=== PATIENT | female | born 1970 | race African-American/Black ===

== ENCOUNTER → 2017-09-22 | Outpatient (CLI) | payer MEDICARE ==
[2016-04-24 20:13] VITALS: BP 159/66
[~2017-09-22] MED LIST: PHEN100T82 PO
--- NOTE | 2017-09-22 10:09 | KCIC ---
DATE: 09/22/2017 EXAM: MAMMO ERNST SCREENING BILATERAL HISTORY: Routine screening COMPARISON: Previous study from 2013 and 2009 This study was interpreted with the benefit of Computerized Aided Detection (CAD). FINDINGS: Breast Density: DENSE The breast Parenchyma is dense, which could reduce the sensitivity of mammography. Breast parenchyma level density D.. The nipples and skin are within normal limits. No suspicious calcifications, spiculated masses or areas of architectural distortion IMPRESSION: No mammographic evidence of malignancy. No significant change when compared to study from 2013. BI-RADS CATEGORY: 1 NEGATIVE RECOMMENDED FOLLOW-UP: 12M 12 MONTH FOLLOW-UP PQRS compliance statement: Patient information was entered into a reminder system with a target due date 09/22/2018 for the next mammogram. Mammography is a sensitive method for finding small breast cancers, but it does not detect them all and is not a substitute for careful clinical examination. A negative mammogram does not negate a clinically suspicious finding and should not result in delay in biopsying a clinically suspicious abnormality. "Our facility is accredited by the [employer] Mammography [employer]."
== END | disposition home or self-care (01) ==
LOC: KCIC MAMMO 08:27
PROVIDERS: ATTEND Physician Assistant
DX: Z12.31 Encounter for screening mammogram for malignant neoplasm of breast (principal)
CPT/HCPCS: 77063; G0202; 77067

== ENCOUNTER → 2019-08-16 | Outpatient (CLI) | payer OTHER, MEDICARE ==
[2016-04-24 20:13] VITALS: BP 159/66
--- NOTE | 2019-08-16 16:37 | KCIC ---
Bilateral digital screening mammograms with 3-D tomosynthesis: Reason for examination: Routine screening. Comparison is made to previous studies dated 09/22/2017 and 08/09/2014. Bilateral mammograms in CC and oblique projections were obtained with 2-D imaging and 3-D tomosynthesis imaging on a Siemens Inspiration unit and reviewed on the workstation. Interpretation was made with the benefit of CAD. The skin and nipples show no abnormalities. No abnormal axillary lymph nodes are seen. The breast parenchyma is extremely dense. (Breast density: Category D.) There are no dominant masses, suspicious calcifications or architectural distortion. Impression: No evidence of malignancy. Recommend routine screening. Your patient's mammogram demonstrates that she has dense breast tissue (breast density category C or D), which could hide abnormalities, and if she has other risk factors for breast cancer that have been identified, she might benefit from supplemental screening tests that may be suggested by you as her ordering physician. Dense breast tissue, in and of itself, is a relatively common condition. Therefore, this information is not provided to cause undue concern, but rather to raise your awareness and to promote discussion with your patient regarding the presence of other risk factors, in addition to dense breast tissue. Your patient's mammography results will be sent to her. BI-RAD Category 1: Negative. "Our facility is accredited by the [employer] Mammography [employer]." This patient's information has been entered into a reminder system for the patient to be notified with the results of her examination and a target date for the next mammogram. Electronically signed by: Rajani Tobias MD (08/16/2019 4:34 PM) [id number]
== END | disposition home or self-care (01) ==
LOC: KCIC MAMMO 14:03
PROVIDERS: ATTEND Internal Medicine
DX: Z12.31 Encounter for screening mammogram for malignant neoplasm of breast (principal)
CPT/HCPCS: 77063; 77067

== ENCOUNTER 2022-03-20 10:41 | Emergency (ER) | payer MEDICARE, OTHER ==
[~2022-03-20] VITALS: Ht 165.1 cm; Wt 62.5 kg
[2022-03-20 11:45] LABS: BASO # 0.1 x10^3/uL (0.0-0.2); BASO % 1 % (0-3); EOS # 0.1 x10^3/uL (0.0-0.7); EOS % 1 % (0-3); HEMATOCRIT 34.6 % (36.0-47.0); HEMOGLOBIN 11.6 g/dL (12.0-15.5); LYMPH # 1.8 x10^3/uL (1.0-4.8); LYMPH % 27 % (24-48); MEAN CORPUSCULAR HEMOGLOBIN 29 pg (25-35); MEAN CORPUSCULAR HGB CONC 34 g/dL (31-37); MEAN CORPUSCULAR VOLUME 86 fL (79-100); MONO # 0.5 x10^3/uL (0.0-1.1); MONO % 8 % (0-9); NEUT # 4.3 x10^3/uL (1.8-7.7); NEUT % 63 % (31-73); PLATELET COUNT 251 x10^3/uL (140-400); RED BLOOD COUNT 4.03 x10^6/uL (3.50-5.40); RED CELL DISTRIBUTION WIDTH 12.7 % (11.5-14.5); WHITE BLOOD COUNT 6.8 x10^3/uL (4.0-11.0)
[2022-03-20] MEDS ORDERED: IV NORMAL SALINE 1000ML BAG 1,000 ML IV ONE (11:45)
[2022-03-20 11:55] LABS: CALCIUM 8.9 mg/dL (8.5-10.1); CREATININE 0.8 mg/dL (0.6-1.0); GFR 91.9; POTASSIUM 3.7 mmol/L (3.5-5.1)
[2022-03-20 12:01] LABS: ALBUMIN 3.6 g/dL (3.4-5.0); ALBUMIN/GLOBULIN RATIO 1.1 (1.0-1.7); MAGNESIUM 1.8 mg/dL (1.8-2.4); TOTAL BILIRUBIN 0.8 mg/dL (0.2-1.0); TOTAL PROTEIN 6.9 g/dL (6.4-8.2)
--- NOTE | 2022-03-20 12:45 | RAD ---
AP chest. HISTORY: Weakness AP view was taken of the chest. Lungs are free of infiltrates. Heart is normal in size. There is no e ffusion. There is mild scoliosis. IMPRESSION: 1. No acute infiltrates. Electronically signed by: Joo Nelson MD (03/20/2022 12:43 PM) [id number]
--- NOTE | 2022-03-20 12:48 | RAD ---
EXAM: Head CT without contrast. HISTORY: Headache. TECHNIQUE: Computed tomographic images of the head were obtained without contrast. *One or more of the following individualized dose reduction techniques were utilized for this examina tion: 1. Automated exposure control. 2. Adjustment of the mA and/or kV according to patient size. 3. Use of iterative reconstruction technique. COMPARISON: None. FINDINGS: There is no acute or subacute extra-axial or intraparenchymal hemorrhage. There is no mass effect or midline shift. There is no hydrocephalus. The kimball-white matter differentiation pattern is intact. There is opacification of an underpneumatized right frontal sinus. The mastoid air cells are clear. T here is no suspicious calvarial lesion. IMPRESSION: No acute intracranial findings. Electronically signed by: Caitlyn Szymanski MD (03/20/2022 12:46 PM) [id number]
--- NOTE | 2022-03-20 13:09 | PHYS DOC ---
Past Medical History Past Medical History: Bipolar, Depression, High Cholesterol, Schizophrenia, Other Additional Past Medical Histor: allergies Past Surgical History: No Surgical History Smoking Status: Never Smoker Alcohol Use: Sober Drug Use: None General Adult EDM: Chief Complaint: MULTIPLE COMPLAINTS HPI: HPI: 51-year-old female presents with report of pain behind her left eye which has been intermittent for the last 2 to 3 months. Patient does report some right-sided weakness and numbness that is been ongoing since January 2021. Patient reports the right-sided weakness and numbness occurred after an accident. Denies any fever or chills. Denies recent trauma. Patient reports she had gone to urgent care yesterday who instructed her to present to the ER for further evaluation and treatment. Denies use of blood thinners. Denies nausea or vomiting. Review of Systems: Review of Systems: Constitutional: Denies fever or chills Eyes: Denies redness or vision changes; reports pain behind left eye HENT: Denies nasal congestion or epistaxis Respiratory: Denies cough or shortness of breath Cardiovascular: Denies chest pain or palpitations GI: Denies abdominal pain, nausea, or vomiting : Denies dysuria or hematuria Musculoskeletal: Denies back pain or extremity pain Integument: Denies rash or skin lesions Neurologic: Reports headache and chronic right-sided weakness or sensory changes since January 2021 Complete systems were reviewed and found to be within normal limits, except as documented in this note. Heart Score: C/O Chest Pain: N/A Current Medications: Current Medications Medications (Trade) Dose Ordered Sig/Mike Start Time Stop Time Status Last Admin Dose Admin Sodium Chloride 1,000 ml @ 1,000 mls/hr 1X ONCE 03/20/22 11:45 03/20/22 12:44 DC 03/20/22 11:49 1,000 MLS/HR Allergies: Allergies: Allergies Coded Allergies Type Severity Reaction Last Updated Verified aspirin Allergy Intermediate 03/20/22 Yes Physical Exam: PE: Constitutional: Well developed, well nourished, no acute distress, non-toxic appearance HENT: Normocephalic, atraumatic Eyes: PERRL, EOMI, conjunctiva normal, no discharge, no nystagmus Neck: Normal range of motion, no tenderness, supple Lungs & Thorax: No respiratory distress, equal chest rise and fall Abdomen: Soft, no tenderness Skin: Warm, dry, no erythema, no rash Extremities: No tenderness, ROM intact, no edema Neurologic: Alert and oriented X 3, reports decreased sensation to right arm compared to left as well as right leg compared to left. Strength 4 out of 5 to right lower extremity with straight leg raise, other extremities 5/5 strength. Psychologic: Affect normal, judgment normal Current Patient Data: Labs: Laboratory Tests Test 03/20/22 11:23 03/20/22 11:53 White Blood Count 6.8 x10^3/uL (4.0-11.0) Red Blood Count 4.03 x10^6/uL (3.50-5.40) Hemoglobin 11.6 g/dL (12.0-15.5) L Hematocrit 34.6 % (36.0-47.0) L Mean Corpuscular Volume 86 fL (79-100) Mean Corpuscular Hemoglobin 29 pg (25-35) Mean Corpuscular Hemoglobin Concent 34 g/dL (31-37) Red Cell Distribution Width 12.7 % (11.5-14.5) Platelet Count 251 x10^3/uL (140-400) Neutrophils (%) (Auto) 63 % (31-73) Lymphocytes (%) (Auto) 27 % (24-48) Monocytes (%) (Auto) 8 % (0-9) Eosinophils (%) (Auto) 1 % (0-3) Basophils (%) (Auto) 1 % (0-3) Neutrophils # (Auto) 4.3 x10^3/uL (1.8-7.7) Lymphocytes # (Auto) 1.8 x10^3/uL (1.0-4.8) Monocytes # (Auto) 0.5 x10^3/uL (0.0-1.1) Eosinophils # (Auto) 0.1 x10^3/uL (0.0-0.7) Basophils # (Auto) 0.1 x10^3/uL (0.0-0.2) Sodium Level 142 mmol/L (136-145) Potassium Level 3.7 mmol/L (3.5-5.1) Chloride Level 106 mmol/L (98-107) Carbon Dioxide Level 28 mmol/L (21-32) Anion Gap 8 (6-14) Blood Urea Nitrogen 5 mg/dL (7-20) L Creatinine 0.8 mg/dL (0.6-1.0) Estimated GFR (Cockcroft-Gault) 91.9 BUN/Creatinine Ratio 6 (6-20) Glucose Level 70 mg/dL (70-99) Calcium Level 8.9 mg/dL (8.5-10.1) Magnesium Level 1.8 mg/dL (1.8-2.4) Total Bilirubin 0.8 mg/dL (0.2-1.0) Aspartate Amino Transferase (AST) 17 U/L (15-37) Alanine Aminotransferase (ALT) 17 U/L (14-59) Alkaline Phosphatase 83 U/L (46-116) Creatine Kinase 167 U/L (26-192) Creatine Kinase MB (Mass) 0.5 ng/mL (0.0-3.6) Creatine Kinase MB Relative Index 0.3 % (0-4) Troponin I High Sensitivity 5 ng/L (4-50) Total Protein 6.9 g/dL (6.4-8.2) Albumin 3.6 g/dL (3.4-5.0) Albumin/Globulin Ratio 1.1 (1.0-1.7) POC Urine HCG, Qualitative Hcg negative (Negative) Laboratory Tests 03/20/22 11:23 Laboratory Tests 03/20/22 11:23 Vital Signs: Vital Signs Date Time Temp Pulse Resp B/P (MAP) Pulse Ox O2 Delivery O2 Flow Rate FiO2 03/20/22 12:50 56 19 129/60 (83) 99 03/20/22 11:28 97.6 Room Air 97.6 EKG: EKG: @1205 Sinus bradycardia at 53bpm, NO ST elevation, QRS 60ms, QT/QTc 446/421ms Radiology/Procedures: Radiology/Procedures: PROCEDURE: CT HEAD WO CONTRAST EXAM: Head CT without contrast. HISTORY: Headache. TECHNIQUE: Computed tomographic images of the head were obtained without contrast. *One or more of the following individualized dose reduction techniques were utilized for this examination: 1. Automated exposure control. 2. Adjustment of the mA and/or kV according to patient size. 3. Use of iterative reconstruction technique. COMPARISON: None. FINDINGS: There is no acute or subacute extra-axial or intraparenchymal hemorrhage. There is no mass effect or midline shift. There is no hydrocephalus. The kimball-white matter differentiation pattern is intact. There is opacification of an underpneumatized right frontal sinus. The mastoid air cells are clear. There is no suspicious calvarial lesion. IMPRESSION: No acute intracranial findings. Electronically signed by: Caitlyn Szymanski MD (03/20/2022 12:46 PM) [id number] PROCEDURE: PORTABLE CHEST 1V AP chest. HISTORY: Weakness AP view was taken of the chest. Lungs are free of infiltrates. Heart is normal in size. There is no effusion. There is mild scoliosis. IMPRESSION: 1. No acute infiltrates. Electronically signed by: Joo Nelson MD (03/20/2022 12:43 PM) [id number] Course & Med Decision Making: Course & Med Decision Making Pertinent Labs and Imaging studies reviewed. (See chart for details) Patient presents with multiple complaints including pain behind left eye which has been ongoing for the past 2 to 3 months as well as right sided weakness and numbness that has been ongoing since January 2021. Denies any recent trauma. NIHSS 2 which is baseline per patient since January 2021. CT head without acute finding. Labs obtained and posted to chart. EKG stable. Symptomatic treatment provided with interval improvement of symptoms. Patient stable for discharge with outpatient follow-up with PCP/neurologist. Neurology referral provided. Of note patient requesting a work note. Discussed findings and plan with patient, who acknowledges understanding and agreement. Dixon Disclaimer: Dixon Disclaimer: This electronic medical record was generated, in whole or in part, using a voice recognition dictation system. Departure Departure Impression: Primary Impression: Headache Qualified Codes: R51.9 - Headache, unspecified Disposition: HOME / SELF CARE / HOMELESS Condition: STABLE Referrals: MOOKIE COLLIER MD (PCP) MEGHA HIGHTOWER MD Patient Instructions: General Headache Without Cause, [id number], Headache, FAQs Additional Instructions: Increase fluid hydration. Take [id number] Tylenol or ibuprofen as needed for pain or discomfort. You were also noted to have right-sided weakness and decreased sensation that has been ongoing for over 1 year. It would be gordon for you to follow with a neurologist for further evaluation. NIHSS Stroke Scale NIH Stroke Scale: NIH Stroke Scale Response (Comments) Value Level of Consciousness: 0 Alert/Responsive 0 LOC Questions: 0 Answers both correctly 0 LOC Commands: 0 Performs both tasks 0 Best Gaze: 0 Normal 0 Visual: 0 No visual loss 0 Facial Palsy: 0 Normal, symmetrical 0 Motor - Left Arm 0 No drift 0 Motor - Right Arm 0 No drift 0 Motor - Left Leg 0 No drift 0 Motor: Right Leg 1 Drift but can hold (Reports stable sin ce January 2021) 1 Limb Ataxia: 0 Absent 0 Sensory: 1 Mid to moderate loss (Reports stable s carlos January 2021) 1 Best Language: 0 Normal 0 Dysathria: 0 Normal 0 Extinction and Inattention: 0 Normal 0 Total 2 ASBA,YOVANI Scherer DO March 20, 2022 13:09
[2022-03-20 13:36] VITALS: BP 122/64
--- NOTE | 2022-03-24 07:59 | EKG ---
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
== END 2022-03-20 13:37 | disposition home or self-care (01) ==
LOC: ER 10:41
DX: R51.9 Headache, unspecified (principal); R53.1 Weakness; R20.0 Anesthesia of skin; F31.9 Bipolar disorder, unspecified; E78.00 Pure hypercholesterolemia, unspecified; F20.9 Schizophrenia, unspecified; Z88.6 Allergy status to analgesic agent
CPT/HCPCS: 36415; 70450; 71045; 80053; 81025; 82553; 83735; 84484; 85025; 93005; 96360; 99285; J7030